=== PATIENT | male | born 1965 | race Caucasian/White ===

== ENCOUNTER → 2018-09-11 | Outpatient (CLI) | payer OTHER ==
[~2018-09-11] MED LIST: PENICILLIN V P500 MG PO; ULTRAM 50MG TAB50 MG PO; ZOCOR
== END ==
LOC: M.RAD 11:47
DX: Z01.818 Encounter for other preprocedural examination (principal)

== ENCOUNTER → 2019-05-05 | Outpatient (CLI) | payer OTHER | LOC: M.RAD 14:31 | DX: M25.562 Pain in left knee (principal); G89.29 Other chronic pain; Z96.652 Presence of left artificial knee joint ==

== ENCOUNTER → 2019-12-30 | Outpatient (CLI) | payer OTHER | LOC: M.RAD 12:00 | PROVIDERS: ATTEND Internal Medicine | DX: Z01.818 Encounter for other preprocedural examination (principal); J84.10 Pulmonary fibrosis, unspecified ==